=== PATIENT | female | born 1980 | race Caucasian/White ===

== ENCOUNTER 2018-02-13 18:33 | Observation (INO) ==
[2018-02-13] MEDS ORDERED: IPRATROPIUM 500 MCG/2.5 ML NEB RESP TX STA (19:16)
[2018-02-13 19:53] LABS: ABG Base Excess 0.3 MMOL/L (-2.5-2.5); ABG HCO3 24.7 MMOL/L (20-26); ABG Oxygen Saturation 99.3 % (95-100); ABG TCO2 16.7 MMOL/L (23-27); Allen Test Positive; Pt O2 Delivery Device Room Air
[2018-02-13 19:55] LABS: ABG PH 7.605 (7.35-7.45)
[2018-02-13 19:56] LABS: ABG PCO2 19.7 MM HG (35-48)
[2018-02-13 20:11] LABS: Basophils % 0.5 % (0.0-0.8); Eosinophils # 0.2 10*3/uL (0.0-0.87); Eosinophils % 1.9 % (0.00-10.9); Hematocrit 41.4 VOL% (35.7-47.0); Hemoglobin 13.6 GM/DL (12.0-16.0); Immature Granulocytes % 0.2 %; Immature Granulocytes Absolute 0.02 #; Lymphocytes # 3.1 10*3/uL (1.4-4.0); Lymphocytes % 37.1 % (21.3-54.2); Mean Corpuscular HGB Conc 32.9 GM/DL (32-36); Mean Corpuscular Hemoglobin 30 PG (27-34); Mean Corpuscular Volume 90.6 FL (87-102); Mean Platelet Volume 10.3 FL (9.6-12.0); Monocytes # 0.7 10*3/uL (0.11-0.8); Monocytes % 8.4 % (1.7-12.7); Neutrophils # 4.3 10*3/uL (1.4-7.4); Neutrophils % 51.9 % (38.7-73.9); Platelet Count 284 T/CUMM (130-400); Red Blood Count 4.57 MC/CUMM (3.8-5.5); Red Cell Distribution Width 12.9 % (9.3-17.3); White Blood Count 8.3 T/CUMM (4-12)
[2018-02-13 20:35] LABS: Alanine Aminotransferase 16 U/L (13-56); Albumin 3.5 G/DL (3.4-5.0); Alkaline Phosphatase 56 U/L (45-117); Aspartate Amino Transferase 11 U/L (0-37); Bilirubin,Total < 0.39 MG/DL (0.2-1.0); Blood Urea Nitrogen 12 MG/DL (7-18); Calcium 8.6 MG/DL (8.5-10.1); Glucose 83 MG/DL (74-106); Osmolality,Calculated 271.8 MOS/KG (273-304); Potassium 3.5 MMOL/L (3.5-5.1); Sodium 137 MMOL/L (136-145); Total Protein 7.3 G/DL (6.4-8.3); Troponin I Only < 0.015 NG/ML (0.00-0.045)
[2018-02-13] MEDS ORDERED: NITROGLYCERIN SL 0.4 MG TABLET SL STA (23:23)
[2018-02-13] MEDS ORDERED: KETOROLAC 30 MG/1 ML VIAL IV STA (23:23)
[2018-02-14] MEDS ORDERED: MORPHINE 4 MG/1 ML VIAL ONE (00:04)
[2018-02-14] MEDS ORDERED: NITROGLYCERIN SL 0.4 MG TABLET SL PRN (04:07)
[2018-02-14] MEDS ORDERED: PROMETHAZINE 25 MG/1 ML VIAL IM PRN (04:07)
[2018-02-14] MEDS ORDERED: MORPHINE 4 MG/1 ML VIAL IV PRN ×2 (04:07)
[2018-02-14] MEDS ORDERED: ONDANSETRON 4 MG/2 ML VIAL IV PRN (04:07)
[2018-02-14] MEDS: SODIUM CHLORIDE 0.9% 1,000 ML IV SCH ×2 (07:02→13:12)
[2018-02-14] MEDS ORDERED: PANTOPRAZOLE 40 MG TABLET PO SCH (09:00)
[2018-02-14] MEDS ORDERED: METOPROLOL SUCCINATE XL 25 MG TABLET PO SCH (09:00)
[2018-02-14] MEDS ORDERED: DOCUSATE SODIUM 100 MG CAPSULE PO SCH (09:00)
[2018-02-14 12:40] VITALS: BP 114/61
== END 2018-02-14 13:14 | disposition home or self-care (01) ==
LOC: N.ED 18:33 → SUATTDRO 02-14 00:58 → N.EDINP 02-14 00:58 → INTOOBSV 02-14 00:58 → N.TELES 02-14 01:47
PROVIDERS: ADMIT Internal Medicine; ATTEND Family Medicine